=== PATIENT | male | born 1930 | race American Indian/Alaskan Native ===

== ENCOUNTER 2017-06-21 08:49 | Emergency (ER) | payer MEDICARE ==
[2017-06-21 09:01] VITALS: BMI 24.2
[2017-06-21 09:06] VITALS: TEMP 97.5
[2017-06-21] MEDS ORDERED: Iohexol 240 (50 ml) PO STA (10:05)
--- NOTE | 2017-06-21 10:05 | C.PDOC ---
History Of Present Illness 87-YEAR-OLD MALE, PRESENTS TO THE EMERGENCY DEPARTMENT WITH COMPLAINTS OF WORSENING SUPRAPUBIC, R GROIN/LQ PAIN SINCE LATE APRIL. LOCALIZED. INTERMIT NOW PERSIST. PS URINATING WO DIFF. NO ASSOC NVD, UTI SX, FEVER. PSH "PROSTATE SURG". NO GROIN SWELL/MASS EXAM NAD NONTOXIC ABD +MILD SUPRAPUB TEND/R GROIN TEND SOFT NO R/G REMAINDER NEG Time Seen by Provider: 06/21/17 09:45 Chief Complaint (Nursing): Abdominal Pain History Per: Patient History/Exam Limitations: no limitations Onset/Duration Of Symptoms: Days Current Symptoms Are (Timing): Still Present Severity: Moderate Past Medical History Reviewed: Historical Data, Nursing Documentation, Vital Signs Vital Signs: Last Vital Signs Temp 97.5 F L 06/21/17 09:01 Pulse 88 06/21/17 13:13 Resp 16 06/21/17 13:13 BP 129/75 06/21/17 13:13 Pulse Ox 99 06/21/17 14:58 - Medical History PMH: Arthritis (KNEE), HTN, Hypercholesterolemia - [facility] Procedures DESTRUCTION OF PROSTATE, ENDO (03/31/17) EXTIRPATION OF MATTER FROM BLADDER, ENDO (03/31/17) FLUOROSCOPY OF BLADDER (03/31/17) Family History: States: No Known Family Hx - Social History Hx Tobacco Use: No Hx Alcohol Use: No Hx Substance Use: No - Immunization History Hx Tetanus Toxoid Vaccination: No Hx Influenza Vaccination: Yes Hx Pneumococcal Vaccination: No Review Of Systems Except As Marked, All Systems Reviewed And Found Negative. Constitutional: Negative for: Fever Cardiovascular: Negative for: Chest Pain Respiratory: Negative for: Shortness of Breath Gastrointestinal: Positive for: Abdominal Pain (right lower quadrant pain). Negative for: Nausea, Vomiting, Diarrhea Genitourinary: Positive for: Other (right inguinal pain). Negative for: Dysuria , Frequency, Hematuria Skin: Negative for: Rash Neurological: Negative for: Weakness, Headache, Dizziness Physical Exam - Physical Exam Appears: Non-toxic, No Acute Distress Skin: Normal Color, Warm, Dry, No Rash Head: Normacephalic Eye(s): bilateral: PERRL Nose: Normal Oral Mucosa: Moist Lips: Normal Appearing Neck: Normal ROM Cardiovascular: Rhythm Regular, No Murmur Respiratory: Normal Breath Sounds, No Accessory Muscle Use Gastrointestinal/Abdominal: Soft, Tenderness (+MILD SUPRAPUB TEND/R GROIN TEND SOFT NO R/G), No Guarding, No Rebound Extremity: Normal ROM, No Deformity, No Swelling Neurological/Psych: Oriented x3, Normal Speech ED Course And Treatment - Laboratory Results Result Diagrams: 06/21/17 10:50 06/21/17 10:50 O2 Sat by Pulse Oximetry: 99 (RA) Pulse Ox Interpretation: Normal Progress - Re-Evaluation Re-evaluation Note: 06/21/17 10:33 BLADDER SCAN APPROX 250 CC PREVOID 06/21/17 14:53 APPEARS COMFORTABLE NAD. ADVISED FU FOR FURTHER EVAL - Data Reviewed Data Reviewed: Lab, Diagnostic imaging, Old records Medical Decision Making Medical Decision Making: Plan: * CT Abd/Pel * CMP, Lipase * CBC * Morphine * Urine Culture * UA * Reassess and Disposition Disposition Counseled Patient/Family Regarding: Studies Performed, Diagnosis, Need For Followup, Rx Given - Disposition Referrals: YOUR,UROLOGIST [Other] Disposition: HOME/ ROUTINE Disposition Time: 14:56 Condition: IMPROVED Additional Instructions: USE STOOL SOFTENERS TO PREVENT CONSTIPATION. FOLLOW UP WITH UROLOGIST Prescriptions: oxyCODONE/Acetaminophen [Percocet 5/325 mg Tab] 1 tab PO QID PRN #14 tab PRN Reason: Pain Instructions: Chronic Pain Forms: [facility] ([place]) - Clinical Impression Clinical Impression: Chronic male pelvic pain - Scribe Statement The provider has reviewed the documentation as recorded by the Scribe (Mary Zavala) All medical record entries made by the Scribe were at my direction and personally dictated by me. I have reviewed the chart and agree that the record accurately reflects my personal performance of the history, physical exam, medical decision making, and the department course for this patient. I have also personally directed, reviewed, and agree with the discharge instructions and disposition.
[2017-06-21] MEDS ORDERED: Iohexol 240 (50 ml) ONE (10:44)
[2017-06-21 10:55] LABS: BASO # 0.1 K/uL (0.0-0.2); BASO % 1.3 % (0.0-2.0); EOS # 0.1 K/uL (0.0-0.7); EOS % 2.7 % (0.0-4.0); HEMOGLOBIN 13.7 g/dL (12.0-18.0); LYMPH # 1.6 K/uL (1.0-4.3); LYMPH % 33.8 % (20.0-40.0); MEAN CELL VOLUME 88.3 fL (80.0-94.0); MEAN CORPUSCULAR HEMOGLOBIN 30.5 pg (27.0-31.0); MEAN CORPUSCULAR HGB CONC 34.5 g/dL (33.0-37.0); MEAN PLATELET VOLUME 7.7 fL (7.2-11.7); MONO # 0.4 K/uL (0.0-0.8); MONO % 9.1 % (0.0-10.0); NEUT # 2.5 K/uL (1.8-7.0); NEUT % 53.1 % (50.0-75.0); NRBC % 0.1 % (0.0-2.0); RBC 4.5 Mil/uL (4.40-5.90); RED CELL DISTRIBUTION WIDTH 12.6 % (11.5-14.5); WHITE BLOOD COUNT 4.8 K/uL (4.8-10.8)
[2017-06-21 11:12] LABS: ALB/GLOB RATIO 1.1 (1.0-2.1); ALBUMIN 4.1 g/dL (3.5-5.0); ALT/SGPT 29 U/L (21-72); AST/SGOT 26 U/L (17-59); BLOOD UREA NITROGEN 17 mg/dL (9-20); CALCIUM 9.1 mg/dl (8.6-10.4); GFR AFRICAN-AMERICAN > 60; GFR NON-AFRICAN AMERICAN > 60; LIPASE 32 U/L (23-300)
[2017-06-21 12:28] LABS: SQUAMOUS EPITHIAL 1 /hpf (0-5); URINE BILIRUBIN NEGATIVE (NEGATIVE); URINE BLOOD NEGATIVE (NEGATIVE); URINE CLARITY Clear (Clear); URINE COLOR Straw (YELLOW); URINE GLUCOSE (UA) NORMAL (Normal); URINE LEUKOCYTE ESTERASE NEG Leu/uL (Negative); URINE NITRATE NEGATIVE (NEGATIVE); URINE PROTEIN NEGATIVE (NEGATIVE); URINE UROBILINOGEN NORMAL mg/dL (0.2-1.0)
[2017-06-21] MEDS ORDERED: Morphine 4 MG/ML VIAL ONE (13:11)
[2017-06-21] MEDS ORDERED: Iodixanol 320 MG/ML 200 ML BOTTLE IV ONE (13:55)
--- NOTE | 2017-06-21 14:31 | CT ---
PROCEDURE: CT Abdomen and Pelvis with contrast HISTORY: abd pain COMPARISON: None. TECHNIQUE: Contrast dose: 100 mL Visipaque 320 Radiation dose: Total exam DLP = 414.6 mGy-cm. This CT exam was performed using one or more of the following dose reduction techniques: Automated exposure control, adjustment of the mA and/or kV according to patient size, and/or use of iterative reconstruction technique. FINDINGS: LOWER THORAX: Unremarkable. LIVER: Hepatic steatosis. No gross lesion or ductal dilatation. GALLBLADDER AND BILE DUCTS: Unremarkable. PANCREAS: Unremarkable. No gross lesion or ductal dilatation. SPLEEN: Unremarkable. ADRENALS: Unremarkable. No mass. KIDNEYS AND URETERS: 8 mm left interpolar hypoattenuating structure. No hydronephrosis. No solid mass. VASCULATURE: Calcific atherosclerosis. 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 No aortic aneurysm. BOWEL: Colonic diverticulosis. No obstruction. No gross mural thickening. APPENDIX: Normal appendix. PERITONEUM: Unremarkable. No free fluid. No free air. LYMPH NODES: Unremarkable. No enlarged lymph nodes. BLADDER: Enhancing polypoid mass within the urinary bladder spanning approximately 9.0 x 4.4 cm. REPRODUCTIVE: Discretely visualized with coarse peripheral calcifications. BONES: Degenerative changes. No acute fracture. OTHER FINDINGS: None. IMPRESSION: No acute abdominal pelvic pathology. Large enhancing polypoid mass within the urinary bladder either of bladder or prostate origin. Alternatively, this may represent lobulated areas of hemorrhage. Cystoscopic/urologic correlation is advised. 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 Additional findings as above.
[2017-06-21 15:32] VITALS: BP 132/78; PULSE 66; RESP 20; O2SAT 100
== END 2017-06-21 15:31 | disposition home or self-care (01) ==
LOC: C.ER 08:49
DX: G89.29 Other chronic pain (principal); R10.2 Pelvic and perineal pain
CPT/HCPCS: 74177; 80053; 81001; 83690; 85025; 87086; 96374; 96376; 99285; J2270; Q9966